=== PATIENT | female | born 1980 | race Caucasian/White ===

== ENCOUNTER 2019-05-31 20:07 | Emergency (ER) | payer OTHER ==
[~2019-05-31] VITALS: Ht 170.2 cm; Wt 98.9 kg
--- OUTSIDE RECORDS SUMMARY | 2019-05-31 20:10 | XMS REPORT ---
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 Allergies, Adverse Reactions, Alerts Allergy Name Allergy Type Status Severity Reaction(s) Onset Date Inactive Date Treating Clinician Comments No Known Allergies DA Active U 2018-04-09 00:00:00 No Known Allergies DA Active U 2012-12-04 00:00:00 Medications This patient has no known medications. Results Test Description Test Time Test Comments Text Results Atomic Results Result Comments SURGICAL SPECIMENS 2018-04-17 08:57:00 RUN DATE: 04/17/18 [facility] *LIVE* PAGE 1 RUN TIME: 58 Specimen Inquiry RUN USER: INTERFACE PATIENT: RAKESH VÁSQUEZ LOC: [facility] U #: [id number] AGE/SX: 37/F ROOM: [facility] RE04/11/18REG DR: Messi Groves MD : 82 BED: 1 DIS: 04/12/18 STATUS: DIS [place]ion TLOC: SPEC #: [id number] RECD: 04/12/18 STATUS: SOUT REQ #: [id number] JAY JAY: 04/12/18 [facility] DR: Messi Groves MD ENTERED: 04/17/18 SP TYPE: SURG SPEC OTHR DR: Carol Kaminski MD ORDERED: GM LEVEL 4 CODES: [id number] - UTERUS, NOS [id number] - FALLOPIAN TUBE [place]: [place] [id number] [place] [address] Messi Groves MD [address] [place] [address]. [address] [place], [place] [id number] PROCEDURES: GM LEVEL 4 (Incomplete) TISSUES: 1. UTERUS, NOS - Uterus, cervix, left fallopian tube, exc 2. FALLOPIAN TUBE, NOS - Fallopian tube, right, segment FINAL DIAGNOSIS Uterus, cervix, left and right fallopian tubes, excision: Chronic cervicitis, squamous metaplasia, nabothian cysts; proliferative endometrium; adenomyosis, fibrous serosal adhesions; bilateral fallopian tubes with no atypical cellular features. POST-OP DIAGNOSIS Abnormal uterine bleeding PRE-OP DIAGNOSIS Abnormal uterine bleeding REVIEWED BY: DAVID CONTINUED ON NEXT PAGE RUN DATE: 04/17/18 [facility] *LIVE* PAGE 2 RUN TIME: 857 Specimen Inquiry RUN USER: INTERFACE SPEC #: [id number] PATIENT: RAKESH VÁSQUEZ #[id number] (Continued) Signed SIGNATURE ON FILE [email or web address] DO 04/17/18 0857 END OF REPORT
[2019-05-31] MEDS ORDERED: SODIUM CHLORIDE 0.9% 1000ML 1,000 ML IV STA (20:22)
[2019-05-31] MEDS ORDERED: ONDANSETRON HCL INJ 2MG/ML 2ML 2 MG/ML VIAL IV STA (20:22)
[2019-05-31] MEDS ORDERED: MULTIVITAMINS- 12 INJECTION 10 ML, FOLIC ACID MDV 5 MG, THIAMINE HCL INJ 500 MG in SODI... IV ONE (20:30)
[2019-05-31] MEDS ORDERED: MORPHINE SULFATE 5 MG/ML VIAL IV ONE (20:45)
[2019-05-31 20:48] LABS: BASOPHILS # (AUTO) 0.1 (0.0-0.1); BASOPHILS % 0.6 % (0.0-1.0); EOSINOPHILS # (AUTO) 0.4 (0.0-0.4); EOSINOPHILS % 3.8 % (0.0-6.0); HEMOGLOBIN 12.4 g/dL (12.0-16.0); LYMPHOCYTES # (AUTO) 3.2 (1.0-3.2); LYMPHOCYTES % 32.2 % (18.0-39.1); MEAN CORPUSCULAR HEMOGLOBIN 28.2 pg (28-32); MEAN CORPUSCULAR HGB CONC 33.5 g/dL (31-35); MEAN CORPUSCULAR VOLUME 84.3 fL (81-99); MONOCYTES # (AUTO) 0.7 (0.2-0.8); MONOCYTES % 6.8 % (4.4-11.3); NEUTROPHILS # (AUTO) 5.7 (2.1-6.9); NEUTROPHILS % 56.2 % (38.7-80.0); PLATELET COUNT 283 x10e3/uL (140-360); RED BLOOD COUNT 4.39 x10e6/uL (3.6-5.1); RED CELL DISTRIBUTION WIDTH 13.3 % (11.7-14.4)
[2019-05-31] MEDS ORDERED: ALBUTEROL/IPRATROPIUM 3 ML NEB NEB ONE (21:00)
[2019-05-31] MEDS ORDERED: MORPHINE SULFATE INJ 4 MG/ML INJ 1ML IV ONE (21:00)
[2019-05-31] MEDS ORDERED: DIATRIZOATE MEGL/DIATRIZOA SOD 30 ML BTL PO ONE (21:02)
[2019-05-31 21:08] LABS: CLARITY,URINE SL CLOUDY (CLEAR); COLOR,URINE YELLOW (YELLOW); LEUKOCYTE ESTERASE ,URINE NEGATIVE (NEGATIVE); NITRITE,URINE NEGATIVE (NEGATIVE); PROTEIN,URINE DIPSTICK TRACE (NEGATIVE)
[2019-05-31 21:09] LABS: BACTERIA,URINE MODERATE /HPF; BILIRUBIN,URINE NEGATIVE (NEGATIVE); EPITHELIAL CELLS,URINE MODERATE /LPF; KETONES,URINE TRACE (NEGATIVE); URINE UROBILINOGEN 0.2 mg/dL (0.2 - 1)
[2019-05-31 21:12] LABS: ALANINE AMINOTRANSFERASE 33 IU/L (0-55); ALBUMIN 3.8 g/dL (3.5-5.0); ALBUMIN/GLOBULIN RATIO 1.1 (0.8-2.0); ALKALINE PHOSPHATASE 93 IU/L (40-150); AMYLASE 77 U/L (25-125); ANION GAP 16.7 mmol/L (8-16); BLOOD UREA NITROGEN 14 mg/dL (7-26); BUN/CREATININE RATIO 19 (6-25); CARBON DIOXIDE 22 mmol/L (22-29); CHLORIDE 105 mmol/L (98-107); CREATININE, SERUM 0.72 mg/dL (0.57-1.11); EST GLOMERULAR FILTRATION RATE > 60 ML/MIN (60-); GLUCOSE 132 mg/dL (74-118); LIPASE 43 U/L (8-78); MAGNESIUM 1.7 MG/DL (1.3-2.1); POTASSIUM 3.7 mmol/L (3.5-5.1); SODIUM 140 mmol/L (136-145)
--- NOTE | 2019-05-31 21:30 | Diagnostic Imaging Report ---
EXAMINATION: CHEST SINGLE (PORTABLE) COMPARISON: None INDICATION: ^inspiratory wheeze bilateral ^[id number] ^2109 DISCUSSION: Frontal view of the chest obtained at 2 hours. HEART AND MEDIASTINUM: The cardiomediastinal silhouette is unremarkable. LINES: None. LUNGS: The lungs are well inflated and clear. No pneumonia or pulmonary edema. PLEURA: No pleural effusion or pneumothorax. Mild eventration of the right diaphragm. BONES AND SOFT TISSUES: No focal osseous lesion. Surgical clips in the lower neck. IMPRESSION: No acute cardiopulmonary disease. Signed by: Dr. Pablo Gore MD on 05/31/2019 9:27 PM
[2019-05-31] MEDS ORDERED: SODIUM CHLORIDE 0.9% 50ML 50 ML ONE (22:27)
[2019-05-31] MEDS ORDERED: IOPAMIDOL 370 MG/ML 200 ML INFUS..BTL INJ ONE (22:27)
--- NOTE | 2019-05-31 22:41 | Diagnostic Imaging Report ---
CT Abdomen And Pelvis with Intravenous Contrast INDICATION: ^abd pain, nausea, vomiting, gastric sleeve 3 years ago ^20190531 ^2214 TECHNIQUE: Thin collimation axial images obtained from the diaphragm to the level of the pubic symphysis following the uneventful administration of 100 cc of low osmolar, nonionic intravenous contrast. Oral contrast was administered. Dose reduction techniques used: Automated exposure control, adjustment of the mAs and/or kVp according to patient size, standardized low-dose protocol, and/or iterative reconstruction technique. RADIATION DOSE: Total DLP: 812.85 mGy*cm Estimated effective dose: (DLP x 0.015 x size factor) mSv CTDIvol has been reviewed. It is below the limits set by the Radiation Protocol Committee (RPC). COMPARISON: None. ABDOMEN FINDINGS: Lung Bases: No infiltrates. Noncalcified nodule in the lateral left lower lobe measures 4 mm. Visualized portion of the mediastinum is normal. Liver: Normal attenuation. No evidence for mass. Gallbladder: Present contains small calcified gallstones. No biliary ductal dilatation. Pancreas: Normal attenuation without mass or ductal dilatation. Spleen: Normal in size. No evidence of mass.. Adrenal Glands: No evidence for mass. Kidneys: Right: Normal enhancement. No soft tissue mass. No hydronephrosis. Left: Normal enhancement. No soft tissue mass. No hydronephrosis. Lymph Nodes: No lymphadenopathy. 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 No dilatation or surrounding inflammation. Small Bowel: Contains enteric contrast extending to the mid small bowel. No dilatation or mural thickening. Large Bowel: Moderate burden of stool throughout. No mural thickening or pericolonic inflammation.. Appendix: Normal. Bladder: Normal. The uterus is absent. No adnexal mass Peritoneum/retroperitoneum: No free fluid or fluid collection. Bones: Unremarkable for age. Soft tissues: Unremarkable IMPRESSION: 1. No evidence for bowel obstruction or inflammation. Normal appendix. 2. Cholelithiasis. No biliary duct dilatation. 3. Postoperative changes as described above. Signed by: Dr. Pablo Gore MD on 05/31/2019 10:38 PM
[2019-05-31] MEDS ORDERED: ULTRAM50 MG PO (22:48)
[2019-05-31] MEDS ORDERED: ZOFRAN4 MG SL (22:48)
[2019-06-01 01:45] VITALS: BP 115/72
[2019-06-07] MEDS ORDERED: XOPENEX0.63 MG/3 INH (09:52)
[2019-06-07] MEDS ORDERED: SYNTHROID50 MCG PO (09:52)
== END 2019-06-01 01:48 | disposition home or self-care (01) ==
LOC: ER 20:07
DX: R10.13 Epigastric pain (principal); R11.2 Nausea with vomiting, unspecified; E03.9 Hypothyroidism, unspecified; Z98.84 Bariatric surgery status
CPT/HCPCS: 36415; 71045; 74177; 80053; 81001; 82150; 83690; 83735; 85025; 93005; 94640; 96374; 96375; 99284; J2270; J2405; J3411; J7030; Q9967

== ENCOUNTER → 2019-06-07 | Day surgery (SDC) | payer OTHER ==
[2019-06-06 14:00] LABS: BASOPHILS % 0.4 % (0.0-1.0); EOSINOPHILS # (AUTO) 0.4 (0.0-0.4); EOSINOPHILS % 4.5 % (0.0-6.0); HEMATOCRIT 39.2 % (34.2-44.1); LYMPHOCYTES # (AUTO) 3.7 (1.0-3.2); MEAN CORPUSCULAR HEMOGLOBIN 27.7 pg (28-32); MEAN CORPUSCULAR HGB CONC 33.2 g/dL (31-35); MEAN CORPUSCULAR VOLUME 83.4 fL (81-99); MONOCYTES # (AUTO) 0.5 (0.2-0.8); MONOCYTES % 5.7 % (4.4-11.3); NEUTROPHILS # (AUTO) 4.8 (2.1-6.9); NEUTROPHILS % 50.1 % (38.7-80.0); PLATELET COUNT 312 x10e3/uL (140-360); RED CELL DISTRIBUTION WIDTH 13.2 % (11.7-14.4)
[2019-06-06 14:13] LABS: ALANINE AMINOTRANSFERASE 58 IU/L (0-55); ALBUMIN 3.9 g/dL (3.5-5.0); ALKALINE PHOSPHATASE 108 IU/L (40-150); ANION GAP 15.1 mmol/L (8-16); BLOOD UREA NITROGEN 12 mg/dL (7-26); BUN/CREATININE RATIO 15 (6-25); CALCIUM 9.5 mg/dL (8.4-10.2); CARBON DIOXIDE 23 mmol/L (22-29); CHLORIDE 103 mmol/L (98-107); EST GLOMERULAR FILTRATION RATE > 60 ML/MIN (60-); GLUCOSE 82 mg/dL (74-118); POTASSIUM 4.1 mmol/L (3.5-5.1); SODIUM 137 mmol/L (136-145)
[~2019-06-07] MED LIST: ACETAMINOPHEN 1000 MG/100 ML IV ONE; ALBUTEROL SULFATE HFA 8GM INHALATION AEROSOL INH ONE; BUPIVACAINE 0.5%/EPI 30 ML SDV INJ ONE; DEXAMETHASONE SOD PHOS INJ 4 MG/ML VIAL ONE; FENTANYL CITRATE/PF 100MCG/2 ML INJ ONE; HYDROCODONE/APAP 7.5MG-325MG 1 EA TAB ONE; LEVOFLOXACIN 500MG/D5W 100ML 100 ML IV ONE; LIDOCAINE HCL 2% LOCAL INJ 5 ML SDV VIAL INJ ONE; MIDAZOLAM HCL 2 MG/2 ML VIAL ONE; NEOSTIGMINE 1 MG/ML 10ML VIAL ONE; ONDANSETRON HCL INJ 2MG/ML 2ML 2 MG/ML VIAL ONE; PROPOFOL IV EMULSION 10 MG/ML 20 ML VIAL ONE; ROCURONIUM BROMIDE 10 MG/ML 5ML VIAL ONE; SEVOFLURANE INHAL SOLN 250 ML PEN BTL ONE; SYNTHROID50 MCG PO; ULTRAM50 MG PO; XOPENEX0.63 MG/3 INH; ZOFRAN4 MG SL
[2019-06-07 10:18] LABS: BILIRUBIN,URINE NEGATIVE (NEGATIVE); CLARITY,URINE CLEAR (CLEAR); COLOR,URINE YELLOW (YELLOW); KETONES,URINE NEGATIVE (NEGATIVE); LEUKOCYTE ESTERASE ,URINE NEGATIVE (NEGATIVE); NITRITE,URINE NEGATIVE (NEGATIVE); PROTEIN,URINE DIPSTICK NEGATIVE (NEGATIVE); URINE UROBILINOGEN 0.2 mg/dL (0.2 - 1)
[2019-06-07 15:45] VITALS: BP 118/72
--- NOTE | 2019-06-07 16:05 | Operative Report ---
DATE OF PROCEDURE: SURGEON: Gus Grimm MD PREOPERATIVE DIAGNOSES: 1. Cholelithiasis. 2. Biliary colic. 3. Cholecystitis. 4. Status post gastric sleeve. POSTOPERATIVE DIAGNOSES: 1. Cholelithiasis. 2. Biliary colic. 3. Cholecystitis. 4. Status post gastric sleeve. PROCEDURE PERFORMED: Laparoscopic cholecystectomy. ANESTHESIA: General endotracheal. ESTIMATED BLOOD LOSS: Minimal. DRAINS: None. COMPLICATIONS: None. INDICATION AND FINDINGS: This patient is a 39-year-old female who was evaluated at [facility] with right upper quadrant pain. She was found to have gallstones on ultrasound with no ductal dilatation. Liver chemistries were normal. She was then referred to the office for further followup and surgical treatment. Intraoperative findings were cholelithiasis. There were multiple stones. The cystic duct was small and nondilated nor was the common bile duct dilated. The patient had gastric changes consistent with sleeve gastrectomy. DESCRIPTION OF PROCEDURE: With the patient lying on the operative table in the supine position after administration of general anesthesia, she was prepped and draped for laparoscopic cholecystectomy. The procedure was begun by establishing the pneumoperitoneum in the right upper quadrant midclavicular line and then pneumoperitoneum was insufflated to 15 mm of pressure and then the 5 mm trocar was placed in that location. After that was done, we introduced the camera and the umbilical site was free of any adhesions and then placed 10/11 trocar in that location. We used 10 mm camera under direct vision with 10/11 subxiphoid port and finally a right anterior axillary line trocar was placed. This was a 5 mm trocar also. We then retracted the gallbladder cephalad as well as inferiorly and laterally within the neck using 5 mm graspers and the gallbladder was rather long. The omentum was stuck to it and then we lysed all the adhesions exposing the end part of the inguinal ligament. We went ahead and identified the cystic duct and the cystic artery both in anterior and posterior branch. We then clipped the structure between titanium clips protecting the common bile duct. We then took the gallbladder down from the liver bed using electrocautery dissection. We then detached the gallbladder placed in an endobag and removed through the umbilical through the subxiphoid port site. After we did that, we inspected the operative field. We reinstituted the pneumoperitoneum and there was some minor oozing coming from the subxiphoid port. We went ahead and then released the pneumoperitoneum and lysed the large incision and then closed the fascia in the subxiphoid port with deep 0 Vicryl stitches. We then reinstituted the pneumoperitoneum and there was no oozing. At this point, we irrigated the right upper quadrant after ascertaining there was no bile leak, no bleeding or apparent bowel injury to release the pneumoperitoneum, closed the umbilical site using 0 Vicryl and then the subxiphoid port was closed using 3-0 Vicryl and 3-0 silk for the skin there as well as the two lateral working ports on the umbilical port site. There was hypertrophic type of nodular area there that was excised and then we irrigated the incision and cauterized any minor oozing points and then closed the fascia with #0 Vicryl, infiltrated the fascia with 0.25% Marcaine with epinephrine as well as the skin and then we closed the subcutaneous tissue with 3-0 Vicryl and the skin was closed interrupted vertical mattress sutures with 3-0 silk tie that was also done in all the other port sites. Sterile dressing was applied. The patient tolerated the procedure well and taken to recovery room in stable condition. MD ISRAEL Matamoros/TOM /[id number]
== END | disposition home or self-care (01) ==
LOC: OR 09:29
PROVIDERS: ATTEND Surgery
DX: K80.10 Calculus of gallbladder with chronic cholecystitis without obstruction (principal); Z01.810 Encounter for preprocedural cardiovascular examination; Z01.812 Encounter for preprocedural laboratory examination; E03.8 Other specified hypothyroidism; J45.909 Unspecified asthma, uncomplicated; Z98.84 Bariatric surgery status
CPT/HCPCS: 36415; 47562; 80053; 81003; 85025; 88304; C1766; J0131; J1100; J1956; J2001; J2250; J2405; J2704; J2710; J3010